=== PATIENT | female | born 2000 | race Caucasian/White ===

== ENCOUNTER 2020-03-13 18:40 | Emergency (ER) | payer OTHER, MEDICAID ==
[~2020-03-13] VITALS: Ht 165.1 cm; Wt 50.0 kg
[2020-03-13] MEDS ORDERED: IBUPROFEN 600MG TAB PO ONE (20:00)
[2020-03-13] MEDS ORDERED: AUGMENTIN 875 MG TAB PO ONE (20:00)
[2020-03-13] MEDS ORDERED: AUGM875T28 PO (21:36)
[2020-03-13 21:47] VITALS: BP 119/69
--- NOTE | 2020-03-14 07:57 | REP ---
Clinical: Trauma/injury. Technique: AP, lateral, bilateral oblique views of the left second toe. Findings: Osseous structures, joint spaces, and surrounding soft tissues appear relatively normal. No obvious acute fracture or dislocation. No subcutaneous emphysema or foreign body. Impression: No obvious acute fracture or dislocation. Electronically Signed by Olegario Love MD 03/14/2020 07:49 A
== END 2020-03-13 21:49 | disposition home or self-care (01) ==
LOC: M ED 18:40 → EDBD 18:40 → M ED 21:49
DX: S09.90XA Unspecified injury of head, initial encounter (principal); S93.602A Unspecified sprain of left foot, initial encounter; S40.872A Other superficial bite of left upper arm, initial encounter; Y04.1XXA Assault by human bite, initial encounter; Y04.8XXA Assault by other bodily force, initial encounter; Y92.9 Unspecified place or not applicable; Y93.9 Activity, unspecified; Y99.9 Unspecified external cause status; F17.200 Nicotine dependence, unspecified, uncomplicated